=== PATIENT | female | born 1955 | race Caucasian/White ===

== ENCOUNTER 2019-12-17 15:23 | Emergency (ER) | payer MEDICAID, OTHER ==
[~2019-12-17] VITALS: Ht 175.3 cm; Wt 65.8 kg
[2019-12-17 15:55] VITALS: BP 124/66
== END 2019-12-17 16:13 | disposition home or self-care (01) ==
LOC: ER 15:23
DX: J20.9 Acute bronchitis, unspecified (principal); E78.5 Hyperlipidemia, unspecified; F17.210 Nicotine dependence, cigarettes, uncomplicated
CPT/HCPCS: 71046; 93005

== ENCOUNTER 2020-05-06 21:59 | Emergency (ER) | payer MEDICARE, MEDICAID | END 2020-05-06 22:15 | disposition left against medical advice (07) | LOC: ER 21:59 | DX: M54.5 Low back pain (principal); Z53.21 Procedure and treatment not carried out due to patient leaving prior to being seen by health care provider ==

== ENCOUNTER 2020-05-07 01:44 | Emergency (ER) | payer MEDICARE, MEDICAID ==
[~2020-05-07] VITALS: Ht 177.8 cm; Wt 61.2 kg
[2020-05-07 02:07] VITALS: BP 124/72
== END 2020-05-07 04:45 | disposition left against medical advice (07) ==
LOC: ER 01:44
DX: M54.5 Low back pain (principal); Z53.21 Procedure and treatment not carried out due to patient leaving prior to being seen by health care provider
CPT/HCPCS: 72100

== ENCOUNTER 2020-05-12 11:21 | Emergency (ER) | payer MEDICARE, MEDICAID ==
[~2020-05-12] VITALS: Ht 175.3 cm; Wt 55.8 kg
[2020-05-12] MEDS ORDERED: TETANUS-DIPTH-ACEL PERTUSSIS 0.5ML SYR Tdap IM ONE (11:30)
[2020-05-12 11:47] VITALS: BP 111/62
[2020-05-12] MEDS ORDERED: cefTRIAXone SOD 1,000 MG VL IM ONE (12:00)
[2020-05-12] MEDS ORDERED: cefTRIAXone W LIDOCAINE 1 GM IM IM ONE (12:00)
[2020-05-12] MEDS ORDERED: LIDOCAINE 1% HCL (LOCAL ANESTH.) INJ 20ML MDV IJ ONE (12:00)
[2020-05-12] MEDS ORDERED: cefTRIAXone SOD 1,000 MG VL ONE (12:02)
[2020-05-12] MEDS ORDERED: LIDOCAINE 1% HCL (LOCAL ANESTH.) INJ 20ML MDV ONE (12:03)
[2020-05-12 12:08] LABS: Basophils # (auto) 0.1 10 ^3/uL (0-0.2); Basophils % (auto) 1.1 % (0.0-2.0); Eosinophils # (auto) 0 10 ^3/uL (0-0.8); Eosinophils % (auto) 0.3 % (0.0-7.0); Hematocrit 38.9 % (36.0-46.0); Hemoglobin 13.4 g/dL (12.2-16.2); Lymphocytes # (auto) 0.8 10 ^3/uL (0.4-5.4); Lymphocytes % (auto) 11.6 % (10.0-50.0); Mean Corpuscular Hemoglobin 33.3 pg (28.0-32.0); Mean Corpuscular Hgb Conc. 34.5 g/dL (32.0-36.0); Mean Corpuscular Volume 96.4 fL (80.0-100.0); Monocytes # (auto) 0.7 10 ^3/uL (0-1.3); Monocytes % (auto) 9.8 % (0.0-12.0); Neutrophils # (auto) 5.4 10 ^3/uL (1.6-8.6); Neutrophils % (auto) 77.2 % (37.0-80.0); Platelet Count (auto) 233 10^3/uL (140-450); Red Blood Cells 4.04 10^6/uL (4.0-5.20); Red Cell Distribution Width 12.5 % (11.8-14.3); White Blood Cell 7.1 10^3/uL (4.4-10.8)
[2020-05-12 12:35] LABS: Chloride 106 mmol/L (98-107); Sodium 139 mmol/L (136-145)
[2020-05-12 12:44] LABS: Salicylate 4.7 mg/dL (2.8-20.0)
[2020-05-12 12:45] LABS: Alanine Aminotransferase 25 U/L (13-56); Albumin 3.5 g/dL (3.4-5.0); Alkaline Phosphatase 71 U/L (45-117); Anion Gap 6 (5-15); Aspartate Aminotransferase 23 U/L (15-37); BUN/Creatinine Ratio 20.7; Bilirubin, Total 0.6 mg/dL (0.2-1.0); Blood Urea Nitrogen 17 mg/dL (7-18); Calcium 8.4 mg/dL (8.5-10.1); Carbon Dioxide 27 mmol/L (21-32); GFR African American 90 mL/min; GFR Non-African American 74 mL/min; Glucose 173 mg/dL (74-106); Total Protein 6.8 g/dL (6.4-8.2)
[2020-05-12 12:49] LABS: Acetaminophen < 2.0 ug/mL (10-30)
[2020-05-12 12:50] LABS: Blood Alcohol < 3.0 mg/dL (0-5)
[2020-05-12 12:56] LABS: Potassium 2.8 mmol/L (3.5-5.1)
[2020-05-12] MEDS ORDERED: POTASSIUM EFFERVESENT TAB 25 MEQ PO ONE (13:00)
[2020-05-12] MEDS ORDERED: LORazepam 0.5 MG TAB PO ONE (15:00)
== END 2020-05-12 17:24 | disposition home or self-care (01) ==
LOC: EDBD 11:21 → ER 11:21
DX: S51.812A Laceration without foreign body of left forearm, initial encounter (principal); X78.8XXA Intentional self-harm by other sharp object, initial encounter; Y93.89 Activity, other specified; Y92.89 Other specified places as the place of occurrence of the external cause; Y99.8 Other external cause status
CPT/HCPCS: 12002; 36415; 71045; 80053; 80320; 80329; 84484; 85025; 90471; 90715; 96372; 99284; J0696; J2001

== ENCOUNTER 2024-02-19 19:40 | Emergency (ER) | payer MEDICARE, MEDICAID ==
[~2024-02-19] VITALS: Ht 162.6 cm; Wt 80.0 kg
[2024-02-19 20:12] VITALS: BP 111/46; PULSE 98; RESP 18; O2SAT 98
== END 2024-02-19 21:51 | disposition left against medical advice (07) ==
LOC: EDUNIT# 19:40 → ER 19:40 → EDBD 19:40 → ER 21:51
DX: M54.9 Dorsalgia, unspecified (principal); G89.29 Other chronic pain; Z53.21 Procedure and treatment not carried out due to patient leaving prior to being seen by health care provider

== ENCOUNTER 2024-02-20 00:03 | Emergency (ER) | payer MEDICARE, MEDICAID ==
[~2024-02-20] VITALS: Ht 175.3 cm; Wt 67.7 kg
[2024-02-20 00:42] VITALS: BP 113/49; PULSE 83; RESP 16; O2SAT 98
== END 2024-02-20 01:30 | disposition left against medical advice (07) ==
LOC: ER 00:03
DX: G89.29 Other chronic pain (principal); M54.9 Dorsalgia, unspecified; E78.5 Hyperlipidemia, unspecified; F12.10 Cannabis abuse, uncomplicated; F17.210 Nicotine dependence, cigarettes, uncomplicated

== ENCOUNTER 2024-07-10 10:58 | Emergency (ER) | payer MEDICARE, MEDICAID ==
[~2024-07-10] VITALS: Ht 170.2 cm; Wt 63.6 kg
[2024-07-10 11:17] VITALS: BP 106/70; PULSE 74; RESP 20; O2SAT 96
[2024-07-10 11:47] LABS: Basophils # (auto) 0.1 10 ^3/uL (0-0.2); Basophils % (auto) 1.2 % (0.0-2.0); Eosinophils # (auto) 0.1 10 ^3/uL (0-0.8); Eosinophils % (auto) 1.4 % (0.0-7.0); Hematocrit 42.1 % (36.0-46.0); Hemoglobin 14.6 g/dL (12.2-16.2); Lymphocytes # (auto) 1.1 10 ^3/uL (0.4-5.4); Lymphocytes % (auto) 21.8 % (10.0-50.0); Mean Corpuscular Hgb Conc. 34.6 g/dL (32.0-36.0); Mean Corpuscular Volume 98.2 fL (80.0-100.0); Monocytes # (auto) 0.5 10 ^3/uL (0-1.3); Monocytes % (auto) 9.9 % (0.0-12.0); Neutrophils # (auto) 3.3 10 ^3/uL (1.6-8.6); Neutrophils % (auto) 65.7 % (37.0-80.0); Nucleated Red Blood Cells % 0.1 %; Platelet Count (auto) 249 10^3/uL (140-450); Red Blood Cells 4.29 10^6/uL (4.0-5.20); Red Cell Distribution Width 13.8 % (11.8-14.3); White Blood Cell 5.1 10^3/uL (4.4-10.8)
[2024-07-10 12:01] LABS: Chloride 110 mmol/L (98-107); Potassium 4.1 mmol/L (3.5-5.1); Sodium 142 mmol/L (136-145)
[2024-07-10 12:02] LABS: Anion Gap 5 (5-15); Calcium 9.5 mg/dL (8.7-10.4); Carbon Dioxide 27 mmol/L (20-31)
[2024-07-10 12:07] LABS: BUN/Creatinine Ratio 13.9 (10.0-20.0); Blood Urea Nitrogen 11 mg/dL (9-23); Glucose 84 mg/dL (74-106)
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
[2024-07-10] MEDS ORDERED: KETOROLAC TROMETH 60MG/2ML VIAL IM ONE (16:00)
== END 2024-07-10 18:11 | disposition left against medical advice (07) ==
LOC: EDUNIT# 10:58 → EDBD 10:58 → ER 10:58
DX: F41.9 Anxiety disorder, unspecified (principal); G89.29 Other chronic pain; R41.82 Altered mental status, unspecified
CPT/HCPCS: 36415; 80048; 84443; 84484; 85025; 99283; J1885

== ENCOUNTER 2025-09-05 11:26 | Outpatient (CLI) | payer OTHER, MEDICAID ==
[2025-09-05 11:45] LABS: Hematocrit 41.9 % (36.0-46.0); Hemoglobin 14.0 g/dL (12.2-16.2); Mean Corpuscular Hemoglobin 32.9 pg (28.0-32.0); Mean Corpuscular Volume 98.8 fL (80.0-100.0); Nucleated Red Blood Cells % 0.1 %
[2025-09-05 12:14] LABS: Alanine Aminotransferase 20 U/L (7-40); Albumin 4.2 g/dL (3.2-4.8); Alkaline Phosphatase 79 U/L (46-116); Anion Gap 5 (5-15); BUN/Creatinine Ratio 21.4 (10.0-20.0); Blood Urea Nitrogen 18 mg/dL (9-23); Calcium 9.2 mg/dL (8.7-10.4); Carbon Dioxide 30 mmol/L (20-31); Cholesterol 158 mg/dL (< 200); Glucose 95 mg/dL (74-106); Potassium 4.5 mmol/L (3.5-5.1); Sodium 143 mmol/L (136-145); Total Protein 6.9 g/dL (5.7-8.2); Triglycerides 63 mg/dL (< 150)
[2025-09-05 12:15] LABS: Bilirubin, Total 0.7 mg/dL (0.2-1.0)
[2025-09-05 12:28] LABS: Chloride 108 mmol/L (98-107); HDL Cholesterol 64 mg/dL (40-59)
[2025-09-06 10:28] LABS: Urine Protein, UAD Negative (Negative)
== END 2025-09-05 17:00 | disposition home or self-care (01) ==
LOC: LAB 11:26
PROVIDERS: ATTEND Internal Medicine
DX: E78.49 Other hyperlipidemia (principal); E79.0 Hyperuricemia without signs of inflammatory arthritis and tophaceous disease; E55.9 Vitamin D deficiency, unspecified; D51.9 Vitamin B12 deficiency anemia, unspecified; R82.79 Other abnormal findings on microbiological examination of urine; R82.998 Other abnormal findings in urine; R82.90 Unspecified abnormal findings in urine; R94.6 Abnormal results of thyroid function studies; R68.89 Other general symptoms and signs; R73.01 Impaired fasting glucose
CPT/HCPCS: 36415; 80053; 80061; 81001; 82306; 83036; 84443; 85025; 87086